=== PATIENT | male | born 1950 | race Caucasian/White ===

== ENCOUNTER 2018-08-26 21:48 | Observation (INO) | payer OTHER ==
[2018-08-26] MEDS ORDERED: ONDANSETRON 4 MG/2 ML VIAL IVP ONE (22:00)
[2018-08-26] MEDS ORDERED: NS 1,000 ML IV ONE ×2 (22:00→22:29)
[2018-08-26] MEDS ORDERED: HYDROmorphONE/DILAUDID 2 MG/ML INJ IVP ONE (22:00)
[2018-08-26] MEDS ORDERED: HYDROmorphONE/DILAUDID 1 MG/ML INJ ONE (22:03)
[2018-08-26] MEDS ORDERED: IOPAMIDOL (ISOVUE-300) 100 ML BTL ONE (22:32)
[2018-08-27] MEDS ORDERED: HYDROmorphONE/DILAUDID 2 MG/ML INJ IVP ONE ×2 (00:04→00:35)
[2018-08-27] MEDS ORDERED: HYDROmorphONE/DILAUDID 1 MG/ML INJ ONE ×2 (00:07→00:33)
[2018-08-27] MEDS ORDERED: ONDANSETRON 4 MG/2 ML VIAL IVP PRN (01:12)
[2018-08-27] MEDS ORDERED: ONDANSETRON DISINTEGRATING 4 MG TAB PO PRN (01:12)
[2018-08-27] MEDS ORDERED: HYDROmorphONE/DILAUDID 1 MG/ML INJ IVP PRN (01:12)
[2018-08-27] MEDS ORDERED: ACETAMINOPHEN 650 MG SUPP PR PRN (01:12)
[2018-08-27] MEDS ORDERED: LORazepam 2 MG/ML INJ IVP PRN (01:12)
[2018-08-27] MEDS ORDERED: D50W 25 GM/50 ML VIAL IVP PRN (03:03)
[2018-08-27] MEDS: NS 1,000 ML IV SCH ×2 (03:13→12:22)
[2018-08-27] MEDS: INSULIN LISPRO 100 UNIT/ML SC SCH ×2 (09:32→11:36)
[2018-08-27] MEDS ORDERED: LACTULOSE 20 GM/30 ML UDCUP PO PRN (10:51)
[2018-08-27] MEDS ORDERED: BISACODYL 10 MG SUPP PR PRN (10:51)
[2018-08-27] MEDS ORDERED: MAGNESIUM HYDROXIDE 30 ML UDCUP PO PRN (10:51)
[2018-08-27] MEDS ORDERED: POLYETHYLENE GLYCOL 3350 17 GM PKT PO PRN (10:51)
[2018-08-27] MEDS ORDERED: SENNOSIDES/DOCUSATE SODIUM TAB PO SCH ×2 (11:15→21:00)
[2018-08-27] MEDS ORDERED: SIMETHICONE 80 MG TAB CHEW PO SCH (13:00)
== END 2018-08-27 17:05 | disposition home or self-care (01) ==
DX: R10.9 Unspecified abdominal pain (principal); R14.0 Abdominal distension (gaseous); R11.2 Nausea with vomiting, unspecified; R16.2 Hepatomegaly with splenomegaly, not elsewhere classified; C91.10 Chronic lymphocytic leukemia of B-cell type not having achieved remission; G89.29 Other chronic pain; M54.9 Dorsalgia, unspecified; E11.9 Type 2 diabetes mellitus without complications; E66.9 Obesity, unspecified; Z68.33 Body mass index [BMI] 33.0-33.9, adult; F17.210 Nicotine dependence, cigarettes, uncomplicated; K76.0 Fatty (change of) liver, not elsewhere classified; K57.90 Diverticulosis of intestine, part unspecified, without perforation or abscess without bleeding; E88.89 Other specified metabolic disorders; I10 Essential (primary) hypertension; I25.10 Atherosclerotic heart disease of native coronary artery without angina pectoris
CPT/HCPCS: 74018; 74177; 76705; 93005; 96361; 96374; 96375; 96376; 99285; G0378; J1170; J2405; Q9967